=== PATIENT | male | born 1965 | race African-American/Black ===

== ENCOUNTER 2023-11-26 15:23 | Inpatient (IN) | payer MEDICAID ==
[~2023-11-26] VITALS: Ht 185.4 cm; Wt 104.8 kg
[~2023-11-26 15:23] MED LIST: ASPI-498 PO; ATEN-60 PO; ATOR10TA PO; BACL10TA PO; BENZ1TAB6 PO; BUPR-346 PO; CLON0.1T PO; DOCU-94 PO; ESOM40CA39 PO; FINA5TAB4 PO; GABA-1250 PO; HAL5T PO; LIS20T PO; NICO14DI3 TOP; NOR10T PO; OLAN20TA PO; OMEP20CA74 PO; PAR20T PO; TAMS0.4C39 PO; TRAZ-228 PO
[2023-11-26] MEDS ORDERED: NALOXONE HCL 1MG/ML 2ML SYRINGE ONE (15:30)
[2023-11-26] MEDS: NALOXONE HCL 1MG/ML 2ML SYRINGE IV ONE ×2 (15:35→17:48)
[2023-11-26 15:48] VITALS: PULSE 72; RESP 16; O2SAT 97
[2023-11-26 16:06] LABS: Basophils # (auto) 0.1 10 ^3/uL (0-0.2); Basophils % (auto) 0.8 % (0.0-2.0); Eosinophils # (auto) 0.5 10 ^3/uL (0-0.8); Hemoglobin 12.9 g/dL (13.5-17.5); Lymphocytes # (auto) 2.1 10 ^3/uL (0.4-5.4); Lymphocytes % (auto) 28.1 % (10.0-50.0); Mean Corpuscular Hemoglobin 31.1 pg (28.0-32.0); Mean Corpuscular Volume 94.4 fL (80.0-100.0); Monocytes # (auto) 0.9 10 ^3/uL (0-1.3); Neutrophils # (auto) 3.9 10 ^3/uL (1.6-8.6); Neutrophils % (auto) 52.1 % (37.0-80.0); Nucleated Red Blood Cells % 0.1 %; Platelet Count (auto) 277 10^3/uL (140-450); Red Blood Cells 4.13 10^6/uL (4.5-5.90); Red Cell Distribution Width 14.9 % (11.8-14.3); White Blood Cell 7.5 10^3/uL (4.4-10.8)
[2023-11-26 16:08] LABS: Urine Bacteria None Seen /hpf (None Seen)
[2023-11-26 16:09] LABS: Urine Blood Negative /uL (Negative); Urine Clarity Clear (Clear); Urine Color Light-Yellow (Yellow); Urine Mucus FEW (None Seen); Urine Protein, UAD Negative (Negative); Urine Specific Gravity 1.016 (1.001-1.035); Urine Urobilinogen Normal (Negative); Urine WBC 1 /hpf (0 - 3)
[2023-11-26 16:26] LABS: Alanine Aminotransferase 27 U/L (7-40); Albumin 3.9 g/dL (3.2-4.8); Alkaline Phosphatase 93 U/L (46-116); Anion Gap 5 (5-15); Aspartate Aminotransferase 22 U/L (13-40); BUN/Creatinine Ratio 10.4 (10.0-20.0); Blood Alcohol 37.2 mg/dL (<10); Blood Urea Nitrogen 11 mg/dL (9-23); Calcium 9.5 mg/dL (8.7-10.4); Carbon Dioxide 26 mmol/L (20-30); Chloride 108 mmol/L (98-107); Potassium 3.3 mmol/L (3.5-5.1); Sodium 139 mmol/L (136-145)
[2023-11-26 16:27] LABS: Bilirubin, Total 0.4 mg/dL (0.2-1.0); Total Protein 6.4 g/dL (5.7-8.2)
[2023-11-26 16:30] LABS: Amphetamine Screen, Urine Pos (NEGATIVE); Barbiturate Scree,Urine Neg (NEGATIVE); Benzodiazephine Screen, Urine Neg (NEGATIVE); Cannabinoid Screen, Urine Neg (NEGATIVE); Cocaine Screen, Urine Neg (NEGATIVE); Opiate Scree,Urine Neg (NEGATIVE); Phencyclidine Screen, Urine Neg (NEGATIVE)
[2023-11-26 16:56] LABS: Glucose 29 mg/dL (74-106); Lactic Acid w/Reflex 2.9 mmol/L (0.4-2.0)
[2023-11-26] MEDS: DEXTROSE (50%) 50ML SYRG IV ONE (17:00)
[2023-11-26] MEDS: SODIUM CHLORIDE 0.9% 1,000 ML IV ONE (17:00)
[2023-11-26] MEDS: POTASSIUM CHL 20MEQ/100ML 100 ML IV SCH (18:15)
[2023-11-26] MEDS: POTASSIUM EFFERVESENT TAB 25 MEQ PO ONE (18:15)
[2023-11-26] MEDS: IOHEXOL 350 MG/ML 100ML IJ ONE (19:04)
[2023-11-26] MEDS: ENOXAPARIN SOD 40 MG/0.4 ML SYRINGE SC ONE (19:55)
[2023-11-26 20:00] VITALS: PULSE 72; RESP 14; O2SAT 100
[2023-11-26] MEDS ORDERED: hydrALAZINE HCL 20 MG/ML VL IV PRN (21:30)
[2023-11-26] MEDS ORDERED: ONDANSETRON HCL 4 MG/2 ML VIAL IV PRN (21:30)
[2023-11-26] MEDS ORDERED: DEXTROSE (50%) 50ML SYRG IV PRN (21:30)
[2023-11-26] MEDS ORDERED: NITROGLYCERIN 0.4 MG SL TAB SL PRN (22:30)
[2023-11-26] MEDS ORDERED: MORPHINE SULFATE INJ 2 MG/ml SYRG IV PRN (22:30)
[2023-11-26] MEDS: ACCU-CHEK COMFORT CURVE STRIP VI SCH (22:30)
[2023-11-26] MEDS: InsuLIN REG 1unit/0.01ml Soln (100units/ml) SC SCH (22:30)
[2023-11-26] MEDS: FAMOTIDINE (10MG/ML) 2ML VL IV SCH (22:35)
[2023-11-26] MEDS: SODIUM CHLOR 0.9% PF (SALINE LOCK) 10ML VIAL/SYR IV SCH (22:45)
[2023-11-26] MEDS: ATORVASTATIN 20 MG TAB PO SCH (22:45)
[2023-11-27 04:24] LABS: Alanine Aminotransferase 26 U/L (7-40); Albumin 3.8 g/dL (3.2-4.8); Alkaline Phosphatase 89 U/L (46-116); Anion Gap 5 (5-15); Aspartate Aminotransferase 16 U/L (13-40); BUN/Creatinine Ratio 6.3 (10.0-20.0); Bilirubin, Total 0.7 mg/dL (0.2-1.0); Blood Urea Nitrogen 6 mg/dL (9-23); Carbon Dioxide 24 mmol/L (20-30); Chloride 110 mmol/L (98-107); Glucose 85 mg/dL (74-106); Sodium 139 mmol/L (136-145)
[2023-11-27 04:29] LABS: Total Protein 6.6 g/dL (5.7-8.2)
[2023-11-27 04:33] LABS: Basophils # (auto) 0 10 ^3/uL (0-0.2); Basophils % (auto) 0.3 % (0.0-2.0); Eosinophils # (auto) 0.4 10 ^3/uL (0-0.8); Eosinophils % (auto) 6.2 % (0.0-7.0); Hematocrit 38.7 % (41.0-53.0); Lymphocytes # (auto) 1.9 10 ^3/uL (0.4-5.4); Lymphocytes % (auto) 28.7 % (10.0-50.0); Mean Corpuscular Hgb Conc. 33.7 g/dL (32.0-36.0); Monocytes # (auto) 0.6 10 ^3/uL (0-1.3); Monocytes % (auto) 9.2 % (0.0-12.0); Neutrophils # (auto) 3.7 10 ^3/uL (1.6-8.6); Neutrophils % (auto) 55.6 % (37.0-80.0); Nucleated Red Blood Cells % 0.1 %; Platelet Count (auto) 269 10^3/uL (140-450); Red Blood Cells 4.08 10^6/uL (4.5-5.90); Red Cell Distribution Width 15.2 % (11.8-14.3); White Blood Cell 6.7 10^3/uL (4.4-10.8)
[2023-11-27 08:00] VITALS: PULSE 80; O2SAT 100
[2023-11-27] MEDS: ASPirin 81 mg TAB PO SCH (11:46)
[2023-11-27 17:12] VITALS: PULSE 77
[2023-11-27 17:16] VITALS: BP 112/58; PULSE 78; RESP 16; TEMP 97.8; O2SAT 100
[2023-11-27 20:00] VITALS: PULSE 76
[2023-11-27 20:30] VITALS: RESP 17; O2SAT 97
[2023-11-27 21:00] VITALS: BP 109/73; PULSE 78; RESP 20; TEMP 98.4; O2SAT 98
[2023-11-28] VITALS (7 sets, daily range): BP systolic 97–127; BP diastolic 49–87; PULSE 69–106; RESP 17–20; TEMP 97.7–98.6; O2SAT 95–99
[2023-11-28] MEDS: HYDROcodone-ACET 5/325MG TAB PO PRN (10:47)
[2023-11-28] MEDS: THIAMINE HCL 100 MG TAB PO ONE (16:09)
[2023-11-28] MEDS: TAMSULOSIN HYDROCHLORIDE 0.4 MG CAP PO ONE (16:09)
[2023-11-28] MEDS: GABAPENTIN 300 MG CAP PO ONE (16:09)
[2023-11-28] MEDS: MULTIPLE VITAMIN TAB PO ONE (16:09)
[2023-11-28] MEDS: TAMSULOSIN HYDROCHLORIDE 0.4 MG CAP PO SCH (18:00)
[2023-11-28] MEDS: GABAPENTIN 300 MG CAP PO SCH (21:23)
[2023-11-28] MEDS: traZODone HCL 50 MG TAB PO SCH (21:24)
[2023-11-29 01:00] VITALS: BP 105/62; PULSE 80; RESP 18; TEMP 97.9; O2SAT 97
[2023-11-29 05:00] VITALS: BP 103/71; PULSE 77; RESP 18; TEMP 97.6; O2SAT 98
[2023-11-29 07:23] LABS: Basophils # (auto) 0 10 ^3/uL (0-0.2); Basophils % (auto) 0.5 % (0.0-2.0); Eosinophils # (auto) 0.4 10 ^3/uL (0-0.8); Eosinophils % (auto) 7.4 % (0.0-7.0); Hematocrit 40.3 % (41.0-53.0); Hemoglobin 13.3 g/dL (13.5-17.5); Lymphocytes # (auto) 1.4 10 ^3/uL (0.4-5.4); Lymphocytes % (auto) 25.7 % (10.0-50.0); Mean Corpuscular Hemoglobin 31.1 pg (28.0-32.0); Mean Corpuscular Hgb Conc. 32.9 g/dL (32.0-36.0); Mean Corpuscular Volume 94.6 fL (80.0-100.0); Monocytes # (auto) 0.6 10 ^3/uL (0-1.3); Monocytes % (auto) 11.4 % (0.0-12.0); Neutrophils # (auto) 2.9 10 ^3/uL (1.6-8.6); Nucleated Red Blood Cells % 0.3 %; Platelet Count (auto) 256 10^3/uL (140-450); Red Blood Cells 4.26 10^6/uL (4.5-5.90); Red Cell Distribution Width 15.4 % (11.8-14.3); White Blood Cell 5.4 10^3/uL (4.4-10.8)
[2023-11-29 07:38] LABS: Chloride 108 mmol/L (98-107); Potassium 3.9 mmol/L (3.5-5.1); Sodium 139 mmol/L (136-145)
[2023-11-29 07:39] LABS: Anion Gap 5 (5-15); Carbon Dioxide 26 mmol/L (20-30)
[2023-11-29 07:40] LABS: Calcium 9.5 mg/dL (8.7-10.4)
[2023-11-29 07:44] LABS: Glucose 93 mg/dL (74-106)
[2023-11-29 07:45] LABS: BUN/Creatinine Ratio 10.3 (10.0-20.0); Blood Urea Nitrogen 10 mg/dL (9-23); Magnesium 1.8 mg/dL (1.6-2.6)
[2023-11-29 07:47] LABS: Phosphorus 2.6 mg/dL (2.4-5.1)
[2023-11-29 08:46] VITALS: BP 105/67; PULSE 73; RESP 18; TEMP 98.4; O2SAT 100
[2023-11-29] MEDS: PARoxetine 20 MG TAB PO SCH (10:57)
[2023-11-29] MEDS: FINASTERIDE 5 MG TAB PO SCH (10:58)
[2023-11-29] MEDS: FAMOTIDINE 20 MG TAB PO SCH (10:58)
[2023-11-29] MEDS: MULTIPLE VITAMIN TAB PO SCH (10:59)
[2023-11-29] MEDS: THIAMINE HCL 100 MG TAB PO SCH (10:59)
[2023-11-29] MEDS: OLANZapine 5 MG TAB PO SCH (11:00)
[2023-11-29 13:17] VITALS: BP 117/81; PULSE 77; RESP 18; TEMP 98.2; O2SAT 91
[2023-11-29 17:13] VITALS: BP 112/84; PULSE 76; RESP 17; TEMP 98.7; O2SAT 94
[2023-11-29 22:00] VITALS: BP 119/76; PULSE 86; RESP 19; TEMP 97.5; O2SAT 100
[2023-11-30] VITALS (7 sets, daily range): BP systolic 99–121; BP diastolic 67–78; PULSE 77–94; RESP 18–20; TEMP 97.6–98.6; O2SAT 95–98
[2023-12-01] VITALS (8 sets, daily range): BP systolic 97–129; BP diastolic 68–77; PULSE 63–105; RESP 18–20; TEMP 97.7–98.1; O2SAT 93–100
[2023-12-01] MEDS: DOCUSATE SOD 100 MG CAP PO PRN (10:22)
[2023-12-02] VITALS (8 sets, daily range): BP systolic 95–156; BP diastolic 57–81; PULSE 74–89; RESP 15–19; TEMP 97.8–98.2; O2SAT 94–100
[2023-12-02] MEDS ORDERED: IBUPROFEN 400 MG TAB PO PRN (11:30)
[2023-12-02] MEDS: risperiDONE 1 MG TAB PO SCH (21:44)
[2023-12-03] VITALS (8 sets, daily range): BP systolic 96–123; BP diastolic 57–82; PULSE 76–88; RESP 15–20; TEMP 97.6–98.5; O2SAT 94–99
[2023-12-03] MEDS: ACETAMINOPHEN 325 MG TAB PO PRN (10:25)
[2023-12-03] MEDS: traMADol HCL 50 MG TAB PO PRN (17:25)
[2023-12-04] MEDS: HYDROcodone-ACET 5/325MG TAB PO PRN (00:05)
[2023-12-04 01:00] VITALS: BP 98/56; PULSE 96; RESP 17; TEMP 98.5; O2SAT 93
[2023-12-04 05:00] VITALS: BP 107/70; PULSE 88; RESP 16; TEMP 98.7; O2SAT 98
[2023-12-04 09:00] VITALS: BP 102/65; PULSE 77; RESP 18; TEMP 97.5; O2SAT 96
[2023-12-04] MEDS: ENOXAPARIN SOD 40 MG/0.4 ML SYRINGE SC ONE (11:03)
[2023-12-04 13:15] VITALS: BP 132/90; PULSE 90; RESP 19; TEMP 98; O2SAT 97
[2023-12-04 17:00] VITALS: BP 108/75; PULSE 83; RESP 17; TEMP 98.5; O2SAT 95
[2023-12-05] MEDS ORDERED: ENOXAPARIN SOD 40 MG/0.4 ML SYRINGE SC SCH (10:00)
== END 2023-12-04 19:23 | disposition left against medical advice (07) | DRG 812 ==
LOC: EDBD 15:23 → EDUNIT# 15:23 → ER 15:23 → TELE 22:17 → TELE-WESTW 11-27 18:48 → WEST WING 11-29 05:56
PROVIDERS: ADMIT Nurse Practitioner Family; ATTEND Internal Medicine
DX: T40.691A Poisoning by other narcotics, accidental (unintentional), initial encounter (principal); G92.8 Other toxic encephalopathy; E11.649 Type 2 diabetes mellitus with hypoglycemia without coma; E87.20 Acidosis, unspecified; S82.401A Unspecified fracture of shaft of right fibula, initial encounter for closed fracture; D64.9 Anemia, unspecified; E78.5 Hyperlipidemia, unspecified; E87.6 Hypokalemia; F10.10 Alcohol abuse, uncomplicated; F15.10 Other stimulant abuse, uncomplicated; I10 Essential (primary) hypertension; I25.10 Atherosclerotic heart disease of native coronary artery without angina pectoris; F17.210 Nicotine dependence, cigarettes, uncomplicated; F32.A Depression, unspecified; W18.39XA Other fall on same level, initial encounter; K21.9 Gastro-esophageal reflux disease without esophagitis; G89.29 Other chronic pain; N40.0 Benign prostatic hyperplasia without lower urinary tract symptoms; M50.30 Other cervical disc degeneration, unspecified cervical region; F11.20 Opioid dependence, uncomplicated; Z59.00 Homelessness unspecified; Z88.0 Allergy status to penicillin; Z79.899 Other long term (current) drug therapy; Z79.82 Long term (current) use of aspirin; Z86.73 Personal history of transient ischemic attack (TIA), and cerebral infarction without residual deficits; Z83.3 Family history of diabetes mellitus; Z82.49 Family history of ischemic heart disease and other diseases of the circulatory system; Z82.62 Family history of osteoporosis; Z91.148 Patient's other noncompliance with medication regimen for other reason; Z91.199 Patient's noncompliance with other medical treatment and regimen due to unspecified reason; Y93.89 Activity, other specified; Y92.89 Other specified places as the place of occurrence of the external cause; Y99.8 Other external cause status; F20.9 Schizophrenia, unspecified; Y90.1 Blood alcohol level of 20-39 mg/100 ml
CPT/HCPCS: 36415; 70450; 71045; 71275; 73562; 80048; 80053; 80307; 80320; 81001; 82607; 82962; 83036; 83605; 83735; 83880; 84100; 84443; 84484; 85025; 85379; 93005; 93306; 93970; 96361; 96374; 96375; 97110; 97116; 97163; 97530; G0378; J1815; J3480; J3490